=== PATIENT | female | born 1940 | race Asian ===

== ENCOUNTER 2016-11-04 07:48 | Day surgery (SDC) | payer MEDICARE, OTHER ==
[~2016-11-04] VITALS: Ht 152.4 cm; Wt 59.0 kg
[~2016-11-04 07:48] MED LIST: ACET-784 PO; ATOR40TA28 PO; CETI-260 PO; CHOL50004 PO; DICLOFENAC SODIUM 0.1% 2.5 ML OPHTHALMIC SOLUTION ONE; FentaNYL CITRATE-PF 100 MCG/2 ML VIAL IVP ONE; GATIFLOXACIN 0.5% 2.5 ML OPHTHALMIC SOLUTION ONE; GLIP10 PO; METF500T4 PO; MIDAZOLAM HCL 2 MG/2 ML VIAL IVP ONE; OS500 PO; PHENYLEPHRINE HCL 2.5% 2 ML OPHTHALMIC SOLUTION ONE; RINGERS SOLUTION,LACTATED 500 ML IV ONE; SITA100 PO; TELM40 PO; TETRACAINE HCL 0.5% 2 ML OPHTHALMIC SOLUTION ONE; TROPICAMIDE 1% 2 ML OPHTHALMIC SOLUTION ONE; VERA-7 PO
[2016-11-04 08:25] LABS: GLUCOSE,POINT OF CARE 169 MG/DL (70-110)
[2016-11-04] MEDS ORDERED: AcetaZOLAMIDE 250 MG TABLET PO ONE (08:30)
[2016-11-04] MEDS ORDERED: TETRACAINE HCL 0.5% 2 ML OPHTHALMIC SOLUTION OS ONE ×2 (08:30→16:49)
[2016-11-04] MEDS ORDERED: ACETAMINOPHEN 325 MG TABLET PO PRN (08:30)
[2016-11-04] MEDS: PHENYLEPHRINE HCL 2.5% 2 ML OPHTHALMIC SOLUTION OS SCH ×3 (08:32→08:43)
[2016-11-04] MEDS: GATIFLOXACIN 0.5% 2.5 ML OPHTHALMIC SOLUTION OS SCH ×3 (08:32→08:50)
[2016-11-04] MEDS: DICLOFENAC SODIUM 0.1% 2.5 ML OPHTHALMIC SOLUTION OS SCH ×3 (08:32→08:50)
[2016-11-04] MEDS: CYCLOPENTOLATE HCL 2% 2 ML OPHTHALMIC SOLUTION OS SCH ×3 (08:36→08:46)
[2016-11-04] MEDS ORDERED: CYCLOPENTOLATE HCL 2% 2 ML OPHTHALMIC SOLUTION ONE (08:38)
[2016-11-04] MEDS ORDERED: AcetaZOLAMIDE 250 MG TABLET ONE (10:24)
[2016-11-04] MEDS ORDERED: POVIDONE-IODINE 10% 15 ML SOLUTION UD TP ONE (16:49)
[2016-11-04] MEDS ORDERED: LIDOCAINE HCL/PF 1% 2 ML VIAL IM ONE (16:49)
[2016-11-04] MEDS ORDERED: TETRACAINE HCL VISCOUS 0.5% 0.6 ML OPHTHALMIC SOLUTION OS ONE (16:49)
[2016-11-04] MEDS ORDERED: HYALURONATE SOD/CHONDROITIN SOD 0.5 ML VIAL IO ONE (16:49)
[2016-11-04] MEDS ORDERED: HYALURONATE SODIUM 12 MG/ML 0.8 ML SYRINGE IO ONE (16:49)
[2016-11-04] MEDS ORDERED: MOXIFLOXACIN HCL 0.5% 3 ML OPHTHALMIC SOLUTION OS ONE (16:49)
[2016-11-04] MEDS ORDERED: EPINEPHrine 1:1,000 [1 MG/ML] AMP IVP ONE (16:49)
[2016-11-04] MEDS ORDERED: BRIMONIDINE TARTRATE 0.15% 5 ML OPHTHALMIC SOLUTION OS ONE (16:49)
== END 2016-11-04 10:40 | disposition home or self-care (01) ==
LOC: SURGERY 07:48
PROVIDERS: ATTEND Ophthalmology
DX: E11.36 Type 2 diabetes mellitus with diabetic cataract (principal); H26.9 Unspecified cataract; I10 Essential (primary) hypertension; D64.9 Anemia, unspecified; F41.9 Anxiety disorder, unspecified; Z98.41 Cataract extraction status, right eye
CPT/HCPCS: 66984; 82962; 93005; C1780; J2250; J3010; J7120; J0171; J3490